=== PATIENT | female | born 1990 | race Caucasian/White ===

== ENCOUNTER 2017-02-25 12:19 | Emergency (ER) | payer OTHER ==
[~2017-02-25] VITALS: Ht 170.2 cm; Wt 65.0 kg
[2017-02-25 12:21] VITALS: BP 121/86; PULSE 117; RESP 20; TEMP 98.8; O2SAT 98
[2017-02-25] MEDS ORDERED: LORA-474 PO (13:20)
[2017-02-25] MEDS ORDERED: CLON0.1T PO (13:21)
--- NOTE | 2017-02-25 14:13 | PD ---
HPI Chief Complaint: Psychiatric Symptoms Time Seen by Provider: 12:47 Travel History International Travel<30 days: No Contact w/Intl Traveler<30days: No Traveled to known affect area: No History of Present Illness HPI The 26 year-old woman who presents to the emergency department complaining of increased anxiety symptoms. She recently was detained by police and feels like this flared up her anxiety. She's not been no sleep in the past couple days. Her mom is a nurse here in the emergency department and encouraged her to come to see Dr. Carranza, one of the psychiatrist here. She checked and is an ED patient and was evaluated by him. He is given a treatment for anxiety, and she' ll follow up as an outpatient. History Past Medical History Medical History: Denies Significant Hx Tetanus Vaccination: < 5 Years Influenza Vaccination: Yes LMP: 02/06/17 Past Surgical History Surgical History: No Previous Surgery Social History Alcohol Use: Yes (socially lastnight) Tobacco Use: Yes (occu a week ago) Allergies-Medications Reported Meds & Prescriptions Reported Meds & Active Scripts Active Clonidine (Clonidine HCl) 0.1 Mg Tab 0.1 Mg PO 1-2 QHS Ativan (Lorazepam) 1 Mg Tab 1 Mg PO Q6H PRN Review of Systems Except as stated in HPI: all other systems reviewed are Neg Physical Exam Narrative GENERAL: Well-appearing 18 year-old woman, no acute distress. SKIN: Warm and dry. CARDIOVASCULAR: Warm and well perfused. RESPIRATORY: Normal rate and effort. MUSCULOSKELETAL: No deformities. NEUROLOGICAL: Awake and alert. No gross deficits. Psychiatric: Minimally anxious. Insight and judgment normal. Data Data Last Documented VS Vital Signs Date Time Temp Pulse Resp B/P Pulse Ox O2 Delivery O2 Flow Rate FiO2 02/25/17 12:21 98.8 117 20 121/86 98 Room Air Orders Psych Screen (02/25/17 12:47) MDM Medical Decision Making Medical Screen Exam Complete: Yes Emergency Medical Condition: Yes Differential Diagnosis Anxiety, PTSD, stress reaction, other Narrative Course medical decision-making new para 18 year-old woman with acute stress reaction and anxiety. Evaluate by psychiatry. Recommend medications and outpatient follow-up. Diagnosis Primary Impression: Stress reaction Additional Instructions: Follow-up with the therapist as an outpatient. Return to the emergency department for any new or worsening symptoms. Med/Other Pt SpecificInfo: Prescription(s) given Scripts Clonidine 0.1 Mg Tab0.1 Mg PO 1-2 qhs #60 TAB Ref 0 Prov:Jonny Carranza MD 02/25/17 Lorazepam (Ativan)1 Mg Tab1 Mg PO Q6H PRN (ANXIETY AND/OR AGITATION) #90 TAB Ref 0 Prov:Jonny Carranza MD 02/25/17 Disposition: 01 DISCHARGE HOME Condition: Stable Zane Lew MD Feb 25, 2017 14:13
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
== END 2017-02-25 15:08 | disposition home or self-care (01) ==
LOC: NEPD 12:19
DX: F43.9 Reaction to severe stress, unspecified (principal); G47.00 Insomnia, unspecified; Z79.899 Other long term (current) drug therapy; Z72.0 Tobacco use
CPT/HCPCS: 99284